=== PATIENT | female | born 1955 | race African-American/Black ===

== ENCOUNTER 2019-01-08 11:00 | Emergency (ER) | payer OTHER ==
[~2019-01-08] VITALS: Ht 172.7 cm; Wt 68.0 kg
[~2019-01-08 11:00] MED LIST: ASPIRIN EC81 M1; CARVEDILOL25 MG; CIPROFLOXACIN500 M1 PO; HYDRALAZINE HC100 MG; IMDUR 60 MG TAB60 M1; NORVASC10 MG; PRAVACHOL40 MG
[2019-01-08 11:46] LABS: CALCIUM 9.5 mg/dL (8.5-10.1); CREATININE 16.4 mg/dL (0.6-1.0); POTASSIUM 4.8 mmol/L (3.5-5.1)
[2019-01-08 12:01] LABS: HEMATOCRIT 36.4 % (37.0-47.0); HEMOGLOBIN 11.7 gm/dL (12.0-15.0); MCH 31.7 pg (26.0-34.0); MCHC 32.1 g/dL (28.0-37.0); MCV 98.8 fL (80.0-100.0); RBC 3.68 mil/uL (4.20-5.00); RDW 19.2 % (10.5-14.5); WBC 5.6 thou/uL (4.0-11.0)
[2019-01-08 13:11] VITALS: BP 143/86
--- NOTE | 2019-01-09 07:59 | EKG ---
[place] [address] [facility] [place] [address] ELECTROCARDIOGRAM REPORT Name: JAZMINE ALEXANDER [facility]: [facility]bo[facility]bo#: [id number] Admission: 01/08/19 Attend Phys: Discharge: 01/08/19 Date of : 51 Report #: [id number] THIS REPORT FOR: //name// [facility] ED Test Date: 2019-01-08 Test Time: 11:45:51 Pat Name: JAZMINE ALEXANDER Department: Room: Gender: F Warehousing Technician: guevara : 1955 Requested By: Gary Rice Order Number: [id number] MD: Jose Jack Measurements Intervals [place] Rate: 77 P: 53 GA: 179 QRS: -20 QRSD: 82 T: 31 QT: 379 QTc: 429 Interpretive Statements Sinus rhythm Inferior infarct, old Anterior infarct, old Baseline wander in lead(s) V3 Compared to ECG 11/14/2012 14:40:57 Myocardial infarct finding now present Electronically Signed On 01-09-2019 7:59:56 [employer]OUNDRY SUPERVISOR by Jose Jack [email or web address] <ELECTRONICALLY SIGNED> By: Jose Jack MD, [facility] 01/09/19 [id number] Jose Jack MD, [facility] /EPI
== END 2019-01-08 13:46 ==
LOC: ER 11:00
PROVIDERS: Emergency Medicine
DX: N18.6 End stage renal disease (principal); I13.2 Hypertensive heart and chronic kidney disease with heart failure and with stage 5 chronic kidney disease, or end stage renal disease; I50.9 Heart failure, unspecified; M32.9 Systemic lupus erythematosus, unspecified; Z99.2 Dependence on renal dialysis; Z86.2 Personal history of diseases of the blood and blood-forming organs and certain disorders involving the immune mechanism; Z86.73 Personal history of transient ischemic attack (TIA), and cerebral infarction without residual deficits